=== PATIENT | female | born 1960 | race African-American/Black ===

== ENCOUNTER 2018-09-25 07:06 | Emergency (ER) | payer OTHER ==
[~2018-09-25] VITALS: Ht 165.1 cm; Wt 55.0 kg
[2018-09-25 07:11] VITALS: BP 103/64
[2018-09-25] MEDS ORDERED: POLYVINYL ALCOHOL OPHTH DROPS 15ML RIGHTEYE STA (08:15)
[2018-09-25] MEDS ORDERED: ACETAMINOPHEN 325MG TABLET PO ONE (08:15)
== END 2018-09-25 10:07 | disposition left against medical advice (07) ==
LOC: ER 07:24
DX: S02.81XA Fracture of other specified skull and facial bones, right side, initial encounter for closed fracture (principal); S02.2XXA Fracture of nasal bones, initial encounter for closed fracture; S09.8XXA Other specified injuries of head, initial encounter; F17.200 Nicotine dependence, unspecified, uncomplicated; Y08.89XA Assault by other specified means, initial encounter; Y93.89 Activity, other specified; Y92.89 Other specified places as the place of occurrence of the external cause; Y99.8 Other external cause status
CPT/HCPCS: 70486; 99284

== ENCOUNTER 2018-09-26 06:51 | Emergency (ER) | payer OTHER ==
[~2018-09-26] VITALS: Ht 165.1 cm; Wt 55.0 kg
[2018-09-26] MEDS ORDERED: IBUPROFEN 800MG TABLET PO ONE (08:00)
[2018-09-26 08:36] VITALS: BP 131/75
== END 2018-09-26 09:01 | disposition home or self-care (01) ==
LOC: ER 06:51
DX: S02.2XXA Fracture of nasal bones, initial encounter for closed fracture (principal); S02.81XA Fracture of other specified skull and facial bones, right side, initial encounter for closed fracture; F14.10 Cocaine abuse, uncomplicated; Z88.5 Allergy status to narcotic agent; Y04.0XXA Assault by unarmed brawl or fight, initial encounter; Y93.89 Activity, other specified; Y92.89 Other specified places as the place of occurrence of the external cause
CPT/HCPCS: 99283